=== PATIENT | female | born 1955 | race Native Hawaiian/Other Pacific Islander ===

== ENCOUNTER 2016-03-28 10:13 | Outpatient (CLI) | payer OTHER ==
[~2016-03-28 10:13] MED LIST: ADDERALL XR20 MG PO; CLON1TAB18 PO; FLUOXETINE40 MG PO
[2016-03-28 10:48] LABS: PLATELET COUNT 294 K/uL (152-353)
[2016-03-28 11:09] LABS: POTASSIUM 3.9 mmol/L (3.6-5.2); SODIUM 134 mmol/L (136-145)
== END 2016-03-28 11:13 | disposition home or self-care (01) ==
LOC: LABW 10:13
PROVIDERS: Nurse Practitioner
DX: Z01.818 Encounter for other preprocedural examination (principal)
CPT/HCPCS: 36415; 80053; 85027

== ENCOUNTER 2016-05-02 11:20 | Outpatient (CLI) | payer OTHER ==
[2016-05-02 12:05] LABS: PLATELET COUNT 252 K/uL (152-353)
[2016-05-02 12:31] LABS: POTASSIUM 4.1 mmol/L (3.6-5.2); SODIUM 139 mmol/L (136-145)
== END 2016-05-02 20:03 | disposition home or self-care (01) ==
LOC: US 11:20
PROVIDERS: Nurse Practitioner
DX: R10.11 Right upper quadrant pain (principal)
CPT/HCPCS: 36415; 80053; 80074; 82150; 83690; 85027; 86677

== ENCOUNTER 2016-06-25 10:57 | Outpatient (CLI) | payer OTHER ==
[2016-06-25 12:30] LABS: PLATELET COUNT 289 K/uL (152-353)
[2016-06-25 12:57] LABS: POTASSIUM 4.1 mmol/L (3.6-5.2); SODIUM 136 mmol/L (136-145)
== END 2016-06-25 11:57 | disposition home or self-care (01) ==
LOC: LABW 10:57
PROVIDERS: Nurse Practitioner
DX: R53.83 Other fatigue (principal); E55.9 Vitamin D deficiency, unspecified; D64.9 Anemia, unspecified
CPT/HCPCS: 36415; 80053; 82306; 82607; 82670; 82728; 82746; 83001; 83002; 83540; 83550; 84144; 84402; 84403; 84439; 84443; 84480; 85027; 86376

== ENCOUNTER 2016-11-17 15:21 | Outpatient (CLI) | payer OTHER | END 2016-11-17 16:25 | disposition home or self-care (01) | LOC: LABW 15:21 | DX: R53.83 Other fatigue (principal); N95.1 Menopausal and female climacteric states; E03.8 Other specified hypothyroidism | CPT/HCPCS: 36415; 82670; 83001; 84403; 84443; 84481 ==

== ENCOUNTER 2017-03-14 17:08 | Emergency (ER) | payer OTHER ==
[~2017-03-14] VITALS: Ht 162.6 cm; Wt 79.4 kg
[2017-03-14 18:30] LABS: PLATELET COUNT 199 K/uL (152-353)
[2017-03-14 18:38] LABS: POTASSIUM 3.4 mmol/L (3.6-5.2); SODIUM 126 mmol/L (136-145)
[2017-03-14 21:20] VITALS: BP 104/58; TEMP 98.5
== END 2017-03-14 21:22 | disposition home or self-care (01) ==
LOC: ED 17:08
DX: B34.9 Viral infection, unspecified (principal); R82.4 Acetonuria
CPT/HCPCS: 36415; 80053; 81000; 85027; 87081; 87804; 87880; 99283

== ENCOUNTER 2017-04-22 09:41 | Outpatient (CLI) | payer OTHER | END 2017-04-23 04:38 | disposition home or self-care (01) | LOC: US 09:41 | DX: C64.2 Malignant neoplasm of left kidney, except renal pelvis (principal) ==

== ENCOUNTER 2017-10-05 12:40 | Outpatient (CLI) | payer OTHER | END 2017-10-05 23:05 | disposition home or self-care (01) | LOC: RAD 12:40 | DX: M25.511 Pain in right shoulder (principal) ==

== ENCOUNTER 2017-12-04 14:46 | Outpatient (CLI) | payer OTHER ==
[2017-12-04 15:03] LABS: PLATELET COUNT 299 K/uL (152-353)
[2017-12-04 15:10] LABS: POTASSIUM 4.2 mmol/L (3.6-5.2)
== END 2017-12-04 19:44 | disposition home or self-care (01) ==
LOC: LABW 14:46
PROVIDERS: Orthopaedic Surgery Sports Medicine
DX: E78.00 Pure hypercholesterolemia, unspecified (principal); Z01.818 Encounter for other preprocedural examination; I10 Essential (primary) hypertension; F41.9 Anxiety disorder, unspecified; F32.9 Major depressive disorder, single episode, unspecified; K46.9 Unspecified abdominal hernia without obstruction or gangrene; K21.9 Gastro-esophageal reflux disease without esophagitis; M12.9 Arthropathy, unspecified
CPT/HCPCS: 36415; 80048; 85027; 93005

== ENCOUNTER 2017-12-18 11:45 | Outpatient (CLI) | payer OTHER ==
[2017-12-18 14:45] LABS: PLATELET COUNT 284 K/uL (152-353)
== END 2017-12-18 19:07 | disposition home or self-care (01) ==
LOC: LABW 11:45
PROVIDERS: Nurse Practitioner
DX: I10 Essential (primary) hypertension (principal); R73.9 Hyperglycemia, unspecified; Z00.01 Encounter for general adult medical examination with abnormal findings
CPT/HCPCS: 36415; 80061; 81000; 82306; 82607; 83036; 84439; 84443; 85027

== ENCOUNTER 2019-02-07 11:55 | Outpatient (CLI) | payer OTHER ==
[2019-02-07 12:16] LABS: PLATELET COUNT 252 K/uL (152-353)
[2019-02-07 12:37] LABS: POTASSIUM 4.1 mmol/L (3.6-5.2)
== END 2019-02-07 21:09 | disposition home or self-care (01) ==
LOC: LABW 11:55
PROVIDERS: Nurse Practitioner
DX: I10 Essential (primary) hypertension (principal); E78.2 Mixed hyperlipidemia; R53.83 Other fatigue
CPT/HCPCS: 36415; 80053; 80061; 82670; 83001; 83002; 84144; 84402; 84403; 84436; 84443; 85027

== ENCOUNTER 2019-03-11 13:33 | Outpatient (CLI) | payer OTHER | END 2019-03-11 19:43 | disposition home or self-care (01) | LOC: MAMMO 13:33 | DX: Z12.31 Encounter for screening mammogram for malignant neoplasm of breast (principal); Z78.0 Asymptomatic menopausal state ==

== ENCOUNTER → 2020-06-29 | Emergency (ER) | payer OTHER ==
[~2020-06-29] VITALS: Ht 162.6 cm; Wt 88.5 kg
[2020-06-30 00:23] LABS: PLATELET COUNT 255 K/uL (152-353)
[2020-06-30 00:36] LABS: POTASSIUM 3.9 mmol/L (3.6-5.2)
[2020-06-30 01:17] VITALS: BP 148/87; TEMP 98.6
== END ==
LOC: ED 23:24
PROVIDERS: Family Medicine
DX: F41.8 Other specified anxiety disorders (principal); J30.89 Other allergic rhinitis; Z20.822 Contact with and (suspected) exposure to COVID-19
CPT/HCPCS: 36415; 80053; 85027; 87502; 87635; 99283; U0003

== ENCOUNTER 2020-12-20 13:16 | Outpatient (CLI) | payer OTHER | END 2020-12-20 18:00 | disposition home or self-care (01) | LOC: MAMMO 13:16 | PROVIDERS: ATTEND Internal Medicine Cardiovascular Disease | DX: Z12.31 Encounter for screening mammogram for malignant neoplasm of breast (principal) ==

== ENCOUNTER 2021-08-13 10:46 | Outpatient (CLI) | payer OTHER ==
[2021-08-13 12:38] LABS: PLATELET COUNT 230 K/uL (152-353)
== END 2021-08-13 19:28 | disposition home or self-care (01) ==
LOC: LABW 10:46
PROVIDERS: ATTEND Registered Nurse
DX: Z79.899 Other long term (current) drug therapy (principal); Z79.890 Hormone replacement therapy
CPT/HCPCS: 36415; 80053; 80061; 82306; 82607; 82627; 82670; 82746; 83001; 83002; 84144; 84402; 84403; 84439; 84443; 84481; 85027

== ENCOUNTER 2021-12-02 08:05 | Outpatient (CLI) | payer OTHER | END 2021-12-02 19:20 | disposition home or self-care (01) | LOC: LABW 08:05 | PROVIDERS: ATTEND Internal Medicine Cardiovascular Disease | DX: E78.49 Other hyperlipidemia (principal) | CPT/HCPCS: 36415; 80061 ==

== ENCOUNTER 2022-03-07 09:25 | Outpatient (CLI) | payer OTHER ==
[2022-03-07 09:51] LABS: PLATELET COUNT 212 K/uL (152-353)
[2022-03-07 11:40] LABS: POTASSIUM 4.3 mmol/L (3.6-5.2)
== END 2022-03-07 18:57 | disposition home or self-care (01) ==
LOC: LABW 09:25
PROVIDERS: ATTEND Registered Nurse
DX: Z00.00 Encounter for general adult medical examination without abnormal findings (principal); Z79.899 Other long term (current) drug therapy; E55.9 Vitamin D deficiency, unspecified; R53.83 Other fatigue; E78.2 Mixed hyperlipidemia; E53.8 Deficiency of other specified B group vitamins; R06.09 Other forms of dyspnea; R73.03 Prediabetes
CPT/HCPCS: 36415; 80053; 80061; 81002; 82306; 82607; 83036; 83880; 84439; 84443; 84481; 85027

== ENCOUNTER 2022-04-01 10:58 | Outpatient (CLI) | payer OTHER | END 2022-04-01 20:35 | disposition home or self-care (01) | LOC: MAMMO 10:58 | PROVIDERS: ATTEND Registered Nurse | DX: Z12.31 Encounter for screening mammogram for malignant neoplasm of breast (principal); Z13.820 Encounter for screening for osteoporosis; N95.8 Other specified menopausal and perimenopausal disorders ==

== ENCOUNTER 2022-06-25 11:09 | Outpatient (CLI) | payer OTHER | END 2022-06-25 17:00 | disposition home or self-care (01) | LOC: LABW 11:09 | PROVIDERS: ATTEND Internal Medicine Cardiovascular Disease | DX: Z79.899 Other long term (current) drug therapy (principal); I50.9 Heart failure, unspecified | CPT/HCPCS: 36415; 80048; 83880; 84443 ==

== ENCOUNTER 2022-07-14 11:06 | Outpatient (CLI) | payer OTHER | END 2022-07-14 18:59 | disposition home or self-care (01) | LOC: RESP 11:06 | PROVIDERS: ATTEND Internal Medicine Cardiovascular Disease | DX: I10 Essential (primary) hypertension (principal) ==

== ENCOUNTER 2023-05-06 10:44 | Outpatient (CLI) | payer OTHER ==
[2023-05-06 10:56] LABS: PLATELET COUNT 270 K/uL (152-353)
[2023-05-06 11:30] LABS: POTASSIUM 3.9 mmol/L (3.6-5.2)
== END 2023-05-06 19:04 | disposition home or self-care (01) ==
LOC: LABW 10:44
PROVIDERS: ATTEND Nurse Practitioner Family
DX: Z00.00 Encounter for general adult medical examination without abnormal findings (principal); E55.9 Vitamin D deficiency, unspecified; E78.2 Mixed hyperlipidemia; R53.83 Other fatigue; E11.9 Type 2 diabetes mellitus without complications
CPT/HCPCS: 36415; 80053; 80061; 82306; 82607; 82746; 83036; 84439; 84443; 84481; 85027